=== PATIENT | male | born 1970 | race Caucasian/White ===

== ENCOUNTER 2017-09-08 02:35 | Emergency (ER) | payer OTHER ==
[~2017-09-08] VITALS: Ht 182.9 cm; Wt 95.2 kg
[~2017-09-08 02:35] MED LIST: (None)20 M1 PO; AMLO5 PO; CEFU500 PO; CETI5 PO; CHLO10 PO; CHLO25 PO; CHLO5 PO; CLON.1 PO; CLON.2 PO; CLON.5 PO; CLON1 PO; CLONIDINE; DIPASPER PO; DOXA4 PO; DULO30; ESCI10 PO; FAMO20 PO; GLIP10 PO; HYDACE5 PO; LORA.5; LORA1 PO; LORA2 PO; METF850 PO; MIRT30 PO; NAPR500 PO; NASAL SPRAY OTC; OMEP20ER PO; OXYACE5T PO; POTCHL20ER PO; PROM25 PO; PROM25S PR; Prednisone20 MG PO; RANI150 PO; ROSU10TA PO; RXDIPATR PO; RXHYDACE PO; RXHYDMOR2 PO; RXLORA1 PO; RXONDA4ODT MM; RXOXYACE PO; RXPROACE PO; RXPROM25 PO; RXTRAM50 PO; SIMV20 PO; TAMS.4ER PO; TRAM50 PO; VENL75ER; [UNRECOGNIZED DRUG - OTHER]; bp med
[2017-09-08] MEDS ORDERED: Prednisone20 MG PO (03:56)
== END 2017-09-08 04:11 | disposition home or self-care (01) ==
LOC: ER 02:35
DX: L25.9 Unspecified contact dermatitis, unspecified cause (principal); I10 Essential (primary) hypertension; Z88.8 Allergy status to other drugs, medicaments and biological substances
CPT/HCPCS: 99282

== ENCOUNTER 2018-03-19 16:37 | Emergency (ER) | payer OTHER ==
[~2018-03-19] VITALS: Ht 182.9 cm; Wt 86.2 kg
== END 2018-03-19 18:05 | disposition home or self-care (01) ==
LOC: ER 16:37
DX: R07.81 Pleurodynia (principal); I10 Essential (primary) hypertension; Z88.8 Allergy status to other drugs, medicaments and biological substances; W01.0XXA Fall on same level from slipping, tripping and stumbling without subsequent striking against object, initial encounter
CPT/HCPCS: 71101; 99283-25

== ENCOUNTER 2018-05-15 09:23 | Emergency (ER) | payer OTHER ==
[~2018-05-15] VITALS: Ht 185.4 cm; Wt 86.2 kg
[2018-05-15 11:29] LABS: Source, Urine Clean Catch
[2018-05-15 11:35] LABS: Bilirubin, Urine Neg (Neg); Blood, Urine Neg (Neg); Glucose Qualitative, Urine Neg (Neg); Ketones, Urine Neg (Neg); Leukocyte Esterase, Urine Neg (Neg); Nitrite, Urine Neg (Neg); Protein, Urine Neg (Neg); Specific Gravity, Urine 1.015 (1.003-1.022); Urobilinogen, Urine NORM (Normal)
[2018-05-15 11:51] LABS: Appearance, Urine Clear (Clear); Color, Urine Yellow (P-Yellow)
[2018-05-15] MEDS ORDERED: Ultram50 MG PO (11:52)
== END 2018-05-15 12:15 | disposition home or self-care (01) ==
LOC: ER 09:23
PROVIDERS: Physician Assistant
DX: K40.90 Unilateral inguinal hernia, without obstruction or gangrene, not specified as recurrent (principal); I10 Essential (primary) hypertension; F17.220 Nicotine dependence, chewing tobacco, uncomplicated; Z88.8 Allergy status to other drugs, medicaments and biological substances
CPT/HCPCS: 76857; 81003; 96372; 99284-25; J1885

== ENCOUNTER 2019-09-21 12:50 | Emergency (ER) | payer OTHER ==
[~2019-09-21] VITALS: Ht 185.4 cm; Wt 94.3 kg
[~2019-09-21 12:50] MED LIST changes: +Ultram50 MG PO
[2019-09-21 13:25] LABS: BASOPHILS ABSOLUTE AUTO 0.05 K/mm3 (0.00-0.23); BASOPHILS PERCENT AUTO 1 % (0-2); EOSINOPHILS ABSOLUTE AUTO 0.09 K/mm3 (0.00-0.68); EOSINOPHILS PERCENT AUTO 1 % (0-6); Hematocrit 43.6 % (37.0-53.0); Hemoglobin 14.4 g/dL (13.5-17.5); IMMATURE GRAN ABSOLUTE AUTO 0.03 K/mm3 (0.00-0.10); IMMATURE GRAN PERCENT AUTO 0 % (0-1); LYMPHOCYTES ABSOLUTE AUTO 1.13 K/mm3 (0.84-5.20); LYMPHOCYTES PERCENT AUTO 11 % (21-46); MONOCYTES ABSOLUTE AUTO 0.86 K/mm3 (0.16-1.47); MONOCYTES PERCENT AUTO 8 % (4-13); Mean Corpuscular HGB 28.4 pg (26.0-34.0); Mean Corpuscular Volume 86 fL (80-100); Mean Platelet Volume 8.8 fL (9.1-12.4); NEUTROPHILS ABSOLUTE AUTO 8.14 K/mm3 (1.96-9.15); NEUTROPHILS PERCENT AUTO 79 % (41-73); Platelet Count 341 K/mm3 (150-400); RDW Coefficient Variation 13.3 % (11.7-14.2); RDW Standard Deviation 41.6 fL (35.1-46.3); Red Blood Cell Count 5.07 M/mm3 (4.30-5.90)
[2019-09-21 13:44] LABS: Alanine Aminotransfer (ALT/SGP 28 U/L (12-78); Albumin, Blood 3.4 g/dL (3.4-5.0); Albumin/Globulin Ratio 0.7 (0.8-1.8); Alk Phos 114 U/L (50-136); Anion Gap 6 mmol/L (6-16); Aspartate Aminotrans (AST/SGOT 22 U/L (12-37); Bilirubin, Total 0.6 mg/dL (0.1-1.0); Blood Urea Nitrogen 13 mg/dL (8-24); Bun/Creatinine Ratio 11.1 (12.0-20.0); CO2, Blood 26 mmol/L (21-32); Calcium, Blood 8.5 mg/dL (8.5-10.1); Chloride, Blood 101 mmol/L (98-108); Creatinine, Blood 1.17 mg/dL (0.60-1.20); Globulin, Blood 5.2 g/dL (2.2-4.0); Glomerular Filtration Rate >60 (60-); Glucose, Blood 138 mg/dL (70-99); Potassium, Blood 3.7 mmol/L (3.5-5.5); Sodium, Blood 133 mmol/L (136-145); Total Protein, Blood 8.6 g/dL (6.4-8.2)
[2019-09-21] MEDS ORDERED: Cephalexin500 MG PO (14:52)
[2019-09-21] MEDS ORDERED: MOTRIN IB200 MG PO (14:56)
== END 2019-09-21 15:16 | disposition home or self-care (01) ==
LOC: ER 12:50
PROVIDERS: Physician Assistant
DX: L03.114 Cellulitis of left upper limb (principal); R07.89 Other chest pain; I10 Essential (primary) hypertension; F17.220 Nicotine dependence, chewing tobacco, uncomplicated
CPT/HCPCS: 36415; 71046; 73130; 76882; 80053; 83605; 85025; 87040; 87077; 87147; 87186; 96372; 99284-25; J0690

== ENCOUNTER 2019-09-22 03:31 | Inpatient (IN) | payer OTHER ==
[~2019-09-22] VITALS: Ht 185.4 cm; Wt 92.5 kg
[~2019-09-22 03:31] MED LIST changes: +Cephalexin500 MG PO; +MOTRIN IB200 MG PO
[2019-09-22 04:21] LABS: BASOPHILS ABSOLUTE AUTO 0.06 K/mm3 (0.00-0.23); BASOPHILS PERCENT AUTO 1 % (0-2); EOSINOPHILS ABSOLUTE AUTO 0.11 K/mm3 (0.00-0.68); EOSINOPHILS PERCENT AUTO 1 % (0-6); Hematocrit 37.2 % (37.0-53.0); Hemoglobin 12.6 g/dL (13.5-17.5); IMMATURE GRAN ABSOLUTE AUTO 0.04 K/mm3 (0.00-0.10); IMMATURE GRAN PERCENT AUTO 0 % (0-1); LYMPHOCYTES ABSOLUTE AUTO 1.29 K/mm3 (0.84-5.20); LYMPHOCYTES PERCENT AUTO 11 % (21-46); MONOCYTES ABSOLUTE AUTO 1.13 K/mm3 (0.16-1.47); MONOCYTES PERCENT AUTO 10 % (4-13); Mean Corpuscular HGB 28.6 pg (26.0-34.0); Mean Corpuscular HGB Conc 33.9 g/dL (31.5-36.5); Mean Corpuscular Volume 85 fL (80-100); NEUTROPHILS ABSOLUTE AUTO 8.79 K/mm3 (1.96-9.15); NEUTROPHILS PERCENT AUTO 77 % (41-73); Platelet Count 286 K/mm3 (150-400); RDW Coefficient Variation 13.2 % (11.7-14.2); RDW Standard Deviation 41.3 fL (35.1-46.3); White Blood Cell Count 11.42 K/mm3 (4.00-11.30)
[2019-09-22 04:39] LABS: Alanine Aminotransfer (ALT/SGP 20 U/L (12-78); Albumin, Blood 2.9 g/dL (3.4-5.0); Albumin/Globulin Ratio 0.6 (0.8-1.8); Alk Phos 108 U/L (50-136); Anion Gap 8 mmol/L (6-16); Aspartate Aminotrans (AST/SGOT 19 U/L (12-37); Bilirubin, Total 0.5 mg/dL (0.1-1.0); Blood Urea Nitrogen 10 mg/dL (8-24); Bun/Creatinine Ratio 10.6 (12.0-20.0); CO2, Blood 24 mmol/L (21-32); Calcium, Blood 8.2 mg/dL (8.5-10.1); Chloride, Blood 99 mmol/L (98-108); Creatinine, Blood 0.94 mg/dL (0.60-1.20); Globulin, Blood 4.7 g/dL (2.2-4.0); Glomerular Filtration Rate >60 (60-); Glucose, Blood 164 mg/dL (70-99); Potassium, Blood 3.3 mmol/L (3.5-5.5); Sodium, Blood 131 mmol/L (136-145); Total Protein, Blood 7.6 g/dL (6.4-8.2)
--- NOTE | 2019-09-22 07:25 | NUR ---
PATIENT IS A NEW ADMIT FROM THE ED. ARRIVED VIA W/C AND INDEPENDENT TRANSFER TO THE BED. AXOX 4 AND INDEPENDENT. PATIENT ORIENTED TO ROOM AND CALL LIGHT SYSTEM. ON ROOM AIR. REPORTS HE LIVES AT THE [facility]. LEFT HAND SEVERE SWELLING AND REPORTS PAINFUL. PENDING MEDICATION ORDERS ON ADMIT. LAB IN FOR BLOOD CULTURE DRAW. PHARMACY REPORTS TO HOLD VANCO ORDER FROM ED AND PLACED NEW VANCO ORDER. ADMIT COMPLETE. CALL LIGHT IN REACH. REPORTED TO ONCOMING RN.
--- NOTE | 2019-09-22 19:14 | NUR ---
PT CONTINUES WITH FREQUENT IV ABX, DID RECEIVED IV POTASSIUM TODAY, TOLERATED WELL. CT SCAN COMPLETED WITHOUT DIFFICULTY. PT SLEEPS OFF AND ON, PAIN FROM SWOLLEN LEFT HAND WAKES, FREQUENT PAIN MEDICATIONS NEEDED. NO ACUTE CHANGES NOTED THIS SHIFT, WILL CONTINUE TO MONITOR AND REPORT TO ONCOMING RN
--- NOTE | 2019-09-23 01:28 | NUR ---
LAB REPORTS THE SAME POSITIVE POSITIVE BLOOD CULTURES FOR THE SECOND TIME. GRAM POSITIVE COCCI IN CLUSTERS. PHARMACY NOTIFIED AND APPROVED THE IV VANCO AND IV MAXIPIME PATIENT IS ON.
--- NOTE | 2019-09-23 02:47 | NUR ---
LAB REPORTS THE SAME POSITIVE BLOOD CULTURE FOR THE THIRD TIME SINCE ADMIT AND SECOND TIME IN THE LAST FEW HOURS. GRAM POSITIVE COCCI IN CLUSTERS. PHARMACY NOTIFIED ON LAST SET AND APPROVED ANTIBIOTICS PATIENT IS ON.
--- NOTE | 2019-09-23 03:49 | NUR ---
SHIFT SUMMARY PATIENT HAD NO ACUTE CHANGES OBSERVED. AXO X4 AND INDEPENDENT IN THE ROOM. REPORTED LEFT HAND PAIN AND ANXIETY. IV TORADOL AND PO ATIVAN ONE MG GIVEN. PATIENT ABLE TO SLEEP FOR THE NEXT FOUR HOURS. IV DILAUDID ALSO USED FOR PAIN MANAGEMENT. PIV REMAINS INTACT. IV ABXS INFUSED T/O SHIFT. NEEDLEMAKER REPORTS SINUS AT 100. VSS/AFEBRILE. DENIES SOB AND N/V. PATIENT ABLE TO SLEEP WITH PAIN MANAGEMENT. CALL LIGHT IN REACH. BED IN LOWEST POSITION. WILL CONTINUE TO MONITOR UNTIL DAY SHIFT NURSE ASSUMES CARE.
--- NOTE | 2019-09-23 05:53 | NUR ---
PATIENT REFUSED LAB DRAW AT THIS TIME. REPORTS FOR LAB TO COME BACK.
[2019-09-23 15:06] LABS: Hematocrit 34.9 % (37.0-53.0); Hemoglobin 11.5 g/dL (13.5-17.5); Mean Corpuscular HGB 28.5 pg (26.0-34.0); Mean Corpuscular Volume 87 fL (80-100); Mean Platelet Volume 9.3 fL (9.1-12.4); Platelet Count 323 K/mm3 (150-400); RDW Coefficient Variation 13.4 % (11.7-14.2); RDW Standard Deviation 42.8 fL (35.1-46.3); Red Blood Cell Count 4.03 M/mm3 (4.30-5.90); White Blood Cell Count 9.88 K/mm3 (4.00-11.30)
[2019-09-23 16:08] LABS: Alanine Aminotransfer (ALT/SGP 18 U/L (12-78); Albumin, Blood 2.6 g/dL (3.4-5.0); Albumin/Globulin Ratio 0.6 (0.8-1.8); Alk Phos 112 U/L (50-136); Anion Gap 7 mmol/L (6-16); Aspartate Aminotrans (AST/SGOT 12 U/L (12-37); Bilirubin, Total 0.5 mg/dL (0.1-1.0); Blood Urea Nitrogen 9 mg/dL (8-24); Bun/Creatinine Ratio 11.7 (12.0-20.0); CO2, Blood 23 mmol/L (21-32); Calcium, Blood 8.5 mg/dL (8.5-10.1); Chloride, Blood 109 mmol/L (98-108); Creatinine, Blood 0.77 mg/dL (0.60-1.20); Globulin, Blood 4.7 g/dL (2.2-4.0); Glomerular Filtration Rate >60 (60-); Glucose, Blood 135 mg/dL (70-99); Potassium, Blood 3.5 mmol/L (3.5-5.5); Sodium, Blood 139 mmol/L (136-145); Total Protein, Blood 7.3 g/dL (6.4-8.2)
--- NOTE | 2019-09-23 16:17 | NUR ---
SHIFT SUMMARY PT IS A/O X 4 WITH CONTINUES TO C/O PAIN TO HIS LEFT HAND. PAIN MEDS HAVE BEEN GIVEN ORDERED AND PT REPORTS MILD RELIEF. THE LEFT HAND REMAINS SWOLLEN AND PT HAS BEEN ENCOURAGED TO ELEVATE IT ON A PILLOW. DR ESTES TELE THIS MORNING. IV ABO INFUSED ORDERED WITH NO ISSUES OBSERVED. 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 DR JENSEN WAS CONSULTED FOR THE HAND AND SAW THE PT AT THE BEDSIDE, HE MADE THE PT NPO FOR POSSIBLE PROCEDURE TOMORROW. PT IS ABLE TO MAKE HIS NEEDS KNOWN AND CALLS FREQUENTLY FOR ASSISTANCE. CALL LIGHT IS IN REACH.
--- NOTE | 2019-09-24 04:34 | NUR ---
SHIFT SUMMARY: VSS. AFEB. A/OX4. COMMUNICATES NEEDS. PT DOES NOT WANT CARES ASKING THIS RN NOT TO RETURN TO HIS ROOM EVEN AFTER IV ABT IS COMPLETE. HE STATED HE WILL "JUST RIP IT OUT INSTEAD". HE IS ANGRY AND ANXIOUS ABOUT LOW PAIN TOLERANCE AND PAINFUL L HAND. HE BEGAN TO YELL ABOUT HIS PAIN AND HIT THE BED RAIL WITH HIS LEFT HAND AT ONE POINT. ADMINSITERED NORCO AND ATIVAN ORDERED AND HAVE RESPECTED PT'S REQUEST TO NOT BE DISTURBED SINCE- WITH THE EXCEPTION OF CHECKING IN ON PT DISCREETLY. CONT WITH LARGE SWELLING AND ERYTHEMA OF THE ENTIRE L HAND. PT DID HAVE IT ELEVATED ON PILLOW AND BED RAIL AT TIME OF ASSESSMENT. REMAINS NPO IN ANTICIPATION FOR I&D of L HAND ABSCESS DURING THE DAY. HAS SLEPT THROUGH MUCH OF THE NIGHT WITHOUT COMPLAINT. NO ACUTE CHANGES. WILL CONT TO MONITOR.
[2019-09-24 05:07] LABS: BASOPHILS ABSOLUTE AUTO 0.06 K/mm3 (0.00-0.23); BASOPHILS PERCENT AUTO 1 % (0-2); EOSINOPHILS ABSOLUTE AUTO 0.43 K/mm3 (0.00-0.68); EOSINOPHILS PERCENT AUTO 4 % (0-6); Hematocrit 35.3 % (37.0-53.0); Hemoglobin 11.6 g/dL (13.5-17.5); IMMATURE GRAN ABSOLUTE AUTO 0.03 K/mm3 (0.00-0.10); IMMATURE GRAN PERCENT AUTO 0 % (0-1); LYMPHOCYTES ABSOLUTE AUTO 1.62 K/mm3 (0.84-5.20); LYMPHOCYTES PERCENT AUTO 16 % (21-46); MONOCYTES ABSOLUTE AUTO 0.92 K/mm3 (0.16-1.47); MONOCYTES PERCENT AUTO 9 % (4-13); Mean Corpuscular HGB 28.4 pg (26.0-34.0); Mean Corpuscular HGB Conc 32.9 g/dL (31.5-36.5); Mean Corpuscular Volume 87 fL (80-100); Mean Platelet Volume 9.1 fL (9.1-12.4); NEUTROPHILS ABSOLUTE AUTO 7.32 K/mm3 (1.96-9.15); NEUTROPHILS PERCENT AUTO 71 % (41-73); Platelet Count 359 K/mm3 (150-400); RDW Coefficient Variation 13.4 % (11.7-14.2); RDW Standard Deviation 42.5 fL (35.1-46.3); Red Blood Cell Count 4.08 M/mm3 (4.30-5.90); White Blood Cell Count 10.38 K/mm3 (4.00-11.30)
[2019-09-24 05:43] LABS: Alanine Aminotransfer (ALT/SGP 15 U/L (12-78); Albumin, Blood 2.6 g/dL (3.4-5.0); Albumin/Globulin Ratio 0.5 (0.8-1.8); Alk Phos 96 U/L (50-136); Anion Gap 7 mmol/L (6-16); Aspartate Aminotrans (AST/SGOT 11 U/L (12-37); Bilirubin, Total 0.3 mg/dL (0.1-1.0); Blood Urea Nitrogen 7 mg/dL (8-24); Bun/Creatinine Ratio 7.8 (12.0-20.0); CO2, Blood 24 mmol/L (21-32); Calcium, Blood 8.3 mg/dL (8.5-10.1); Chloride, Blood 109 mmol/L (98-108); Creatinine, Blood 0.89 mg/dL (0.60-1.20); Globulin, Blood 4.8 g/dL (2.2-4.0); Glomerular Filtration Rate >60 (60-); Glucose, Blood 109 mg/dL (70-99); Potassium, Blood 3.7 mmol/L (3.5-5.5); Sodium, Blood 140 mmol/L (136-145); Total Protein, Blood 7.4 g/dL (6.4-8.2)
[2019-09-24 13:51] LABS: Vancomycin, Trough 21.7 ug/mL (5.0-10.0)
--- NOTE | 2019-09-24 15:51 | NUR ---
SHIFT SUMMARY PT IS A/O X 4 WITH ONGOING C/O PAIN TO LEFT HAND. PT REPORTS THAT THE CURRENT PAIN MED REGIMINE IS EFFECTIVE OF NOW. LEFT HAND REMAINS ELEVATED ON A PILLOW TO HELP DECREASE SWELLING. PER DR PETTIT THEY WILL NOT BE DOING ANY SURGICAL PROCEDURES OF NOW AND NPO STATUS WAS DCD AND REGULAR DIET RE-STARTED. PT HAS BEEN SLEEPING MOST OF DAY AND HAS ASKED NOT TO BE DISTURBED EXCEPT FOR MEDS AND TX. HE IS GENERALLY UNPLEASANT AND STATES HE IS UNCOMFORTABLE AND WISHES TO GO HOME [place]. PER REPORT HE LIVES [facility] AND CARE MANAGEMENT HAS BEEN WORKING WITH HIM ON A DC PLAN. PT WAS ASSISTED TO TAKE A SHOWER, CLEAN CLOTHES WERE PROVIDED AND BED LINENS CHANGED. CRITICAL VANCO RESULT WAS CALLED INTO PHARMACY AND THEY ADJUSTED HIS VANCO REFLECTED ON THE OCT. PT IS SELF AMBULATING TO THE TOILET. PT IS ABLE TO MAKE HIS NEEDS KNOWN AND CALLS FOR HELP WHEN NEEDED. CALL LIGHT IS IN REACH.
--- NOTE | 2019-09-25 09:21 | NUR ---
LATE MAILROOM SUPERVISOR SUMMARY Patient slept fitfully overnight. Woke approximately 3 times for pain/anxiety meds. Right forearm IV infiltrated beginning of shift. warm moist compresses placed to dissipate swelling. Patient refused IV restart until closing supervisor as he thought he was to be discharged today. Remindedd patient of possible I&D in AM, and that he would need IV Vanco in AM as that is what the surgeon stated in her notes was helping with the infection. Patient agreed, and night smelter charger was able to restart IV in right upper arm. Left hand is very red and swollen between thumb and first finger. Patient states much improved. Light outline of wound shows that it has shrunken impressively since admission
--- NOTE | 2019-09-25 19:23 | NUR ---
SHIFT SUMMARY PT AXO, IRRITABLE THIS MORNING. PT THREATENED TO LEAVE AMA AT ONE POINT. NURSE ENCOURAGED PT TO BE PATIENT. DR PETTIT CONSULTED, SEE NOTE. PT MEDICATED FOR PAIN PER EMAR. AT ONE POINT, PT REQUESTED PAIN AND ANXIETY MEDICATION THEN WHEN NURSE RETURNED TO ADMINISTER, PT WAS ASLEEP. MEDS RETURNED TO XIS AT THAT TIME. PT UP AD CALI IN ROOM. IV PATENT AND SALINE LOCKED. BED IN LOW POSITION, CALL LIGHT WITHIN REACH. NO OTHER CHANGES THIS SHIFT.
[2019-09-26 05:08] LABS: BASOPHILS ABSOLUTE AUTO 0.09 K/mm3 (0.00-0.23); BASOPHILS PERCENT AUTO 1 % (0-2); EOSINOPHILS ABSOLUTE AUTO 0.62 K/mm3 (0.00-0.68); EOSINOPHILS PERCENT AUTO 7 % (0-6); Hemoglobin 14.2 g/dL (13.5-17.5); IMMATURE GRAN ABSOLUTE AUTO 0.09 K/mm3 (0.00-0.10); IMMATURE GRAN PERCENT AUTO 1 % (0-1); LYMPHOCYTES ABSOLUTE AUTO 1.88 K/mm3 (0.84-5.20); LYMPHOCYTES PERCENT AUTO 20 % (21-46); MONOCYTES ABSOLUTE AUTO 0.72 K/mm3 (0.16-1.47); MONOCYTES PERCENT AUTO 8 % (4-13); Mean Corpuscular HGB 28.1 pg (26.0-34.0); Mean Corpuscular Volume 85 fL (80-100); Mean Platelet Volume 9.1 fL (9.1-12.4); NEUTROPHILS ABSOLUTE AUTO 5.92 K/mm3 (1.96-9.15); NEUTROPHILS PERCENT AUTO 63 % (41-73); Platelet Count 411 K/mm3 (150-400); RDW Coefficient Variation 13.3 % (11.7-14.2); RDW Standard Deviation 41.3 fL (35.1-46.3); Red Blood Cell Count 5.06 M/mm3 (4.30-5.90); White Blood Cell Count 9.32 K/mm3 (4.00-11.30)
[2019-09-26 05:28] LABS: Albumin, Blood 2.8 g/dL (3.4-5.0); Anion Gap 7 mmol/L (6-16); Blood Urea Nitrogen 13 mg/dL (8-24); Bun/Creatinine Ratio 14.2 (12.0-20.0); CO2, Blood 25 mmol/L (21-32); Calcium, Blood 9.1 mg/dL (8.5-10.1); Chloride, Blood 106 mmol/L (98-108); Creatinine, Blood 0.92 mg/dL (0.60-1.20); Glomerular Filtration Rate >60 (60-); Glucose, Blood 112 mg/dL (70-99); Phosphorus, Blood 4.5 mg/dL (2.5-4.9); Potassium, Blood 4.4 mmol/L (3.5-5.5); Sodium, Blood 138 mmol/L (136-145); Vancomycin, Trough 13.2 ug/mL (5.0-10.0)
--- NOTE | 2019-09-26 06:16 | NUR ---
SHIFT SUMMARY NO ISSUES NOTED. PT HAS SLEPT OFF/ ON T/O SHIFT. PT DISCOMFORT TX PER EMAR. PT CURRENTLY SLEEPING AND BREATHING EASY. CALL LIGHT IN REACH.
--- NOTE | 2019-09-26 18:35 | NUR ---
SHIFT SUMMARY PT HAS BEEN SLEEPING OFF AND ON. MEDICATED MULITPLE TIMES FOR LEFT HAND PAIN. PT INDEPENDENT AND SHOWERED TODAY. DR. SMITH IN TO SEE PT THIS AFTERNOON AND PLANS FOR PT TO HAVE 4 WEEKS OF IV DAPTOMYCIN ANTIBIOTICS. NO CHANGES THIS SHIFT. WILL CONTINUE TO MONITOR AND REPORT TO ONCOMING RN.
--- NOTE | 2019-09-27 04:18 | NUR ---
MOLDER INFLATED BALL SUMMARY PT SLEPT OFF AND ON TONIGHT. A/O X4, INDEPENDENT IN ROOM. PT REPORTS SWELLING IN LEFT HAND HAS GONE DOWN. L HAND PAIN TREATED PER EMAR. A FEW VISITORS VISITED PT. NO ACUTE CHANGES, VSS. WILL CONTINUE TO MONITOR.
[2019-09-27] MEDS ORDERED: IBUP400 PO (13:03)
[2019-09-27] MEDS ORDERED: DAPTOMYCIN350 MG IV (13:05)
--- NOTE | 2019-09-27 15:41 | NUR ---
SHIFT SUMMARY. 1500 PT DISCHARGED HOME VIA PERSONAL VEHICLE, HIS MOTHER WAS TO SUPPLY A RIDE. PT REQUESTED TO SELF AMBULATE TO ENTRANCE WITHOUT ESCORT. IV REMOVED. PT RECIEVED IV ANTIBIOTIC PRIOR TO D/C. 3 APPOINTMENTS SCHEDULED FOR [facility]. CELLULITIS DECREASED PER PT REPORT. NO NEW CHANGES OR CONCERNS.
== END 2019-09-27 15:00 | disposition home or self-care (01) | DRG 872 ==
LOC: ER 03:31 → MEDS 05:51
PROVIDERS: Emergency Medicine; Family Medicine; Internal Medicine; Pharmacist; ADMIT Internal Medicine
DX: A41.02 Sepsis due to Methicillin resistant Staphylococcus aureus (principal); L03.114 Cellulitis of left upper limb; F11.20 Opioid dependence, uncomplicated; R65.20 Severe sepsis without septic shock; E87.6 Hypokalemia; D69.6 Thrombocytopenia, unspecified; D64.9 Anemia, unspecified; I10 Essential (primary) hypertension; Z59.0 Homelessness
CPT/HCPCS: 36415; 73201; 76882; 80053; 80069; 80202; 82550; 82565; 83605; 85025; 85027; 85651; 86140; 87040; 90686; 93306; 96374; 96375; 99284-25; J0690; J0692; J0878; J1170; J1650; J1885; J2405; J3370; J3480; J7030; J7050; Q9967

== ENCOUNTER 2019-09-28 10:30 | Day surgery (SDC) | payer OTHER ==
[~2019-09-28 10:30] MED LIST changes: +DAPTOMYCIN350 MG IV; +IBUP400 PO
== END 2019-09-28 11:30 | disposition home or self-care (01) ==
LOC: ATC 10:30
DX: L03.114 Cellulitis of left upper limb (principal); I10 Essential (primary) hypertension; A41.9 Sepsis, unspecified organism; E87.6 Hypokalemia; Z79.899 Other long term (current) drug therapy
CPT/HCPCS: 96365; J0878

== ENCOUNTER 2019-09-29 00:38 | Day surgery (SDC) | payer OTHER | END 2019-09-29 11:12 | disposition home or self-care (01) | LOC: ATC 00:38 | DX: L03.114 Cellulitis of left upper limb (principal); I10 Essential (primary) hypertension; A41.9 Sepsis, unspecified organism; E87.6 Hypokalemia; Z79.899 Other long term (current) drug therapy | CPT/HCPCS: 96365; J0878 ==

== ENCOUNTER 2019-09-30 00:13 | Day surgery (SDC) | payer OTHER | END 2019-09-30 12:00 | disposition home or self-care (01) | LOC: ATC 00:13 | DX: L03.114 Cellulitis of left upper limb (principal); I10 Essential (primary) hypertension; A41.9 Sepsis, unspecified organism; E87.6 Hypokalemia; Z79.899 Other long term (current) drug therapy | CPT/HCPCS: 96365; J0878 ==

== ENCOUNTER 2019-10-01 00:10 | Day surgery (SDC) | payer OTHER ==
--- NOTE | 2019-10-01 16:50 | NUR ---
THIS RN JUST GOT CALLED BY SERGER BREE, STATING THAT SHE WANTED THE PICC LINE PULLED ON THIS PATIENT REGARDING HE HAS HX OF IV DRUG USE. THIS RN INFORMED HER THAT HE IN FACT DOES NOT HAVE A PICC NOR A POWER GLIDE BUT IF HE CONTINUES TO BE A DIFFICULT IV START WE MAY HAVE TO PUT A POWER GLIDE IN THIS PT. THIS PT WAS POKED 6 TIMES YESTERDAY AND 5 TIMES TODAY. INFORMED SERGER THAT IF PT IS GOING TO ABUSE HEROIN/METH PT WILL FIND A WAY. WE DECIDED TO LEAVE THE IV IN THIS PT, SECURED IT WITH TEGADERM SO IF HE TAMPERS WITH IT IT WILL BE PULLED. INFORMED PT OF CONCERNS REGARDING THIS AND PT VERBALLY STATES HE WILL NOT USE AND UNDERSTANDS THAT WE ARE PUTTING TAMPER RESISTANT DRESSINGS ON IV. IF WE SEE ANY FURTHER ISSUES WITH PT WE WILL SEE IF PT COULD HAVE ORAL ANTIBIOTICS. IN FACT PT WOULD RATHER DO ORAL ANTIBIOTICS BECAUSE HE STATES IT IS HARD TO GET RIDE IN HER AND THIS DEPARTMENT DOES NOT KNOW IF HE WILL BE A FAITHFUL/COMPLIENT PT REGARDING INFUSIONS
== END 2019-10-01 14:45 | disposition home or self-care (01) ==
LOC: ATC 00:10
DX: L03.114 Cellulitis of left upper limb (principal); I10 Essential (primary) hypertension
CPT/HCPCS: 96365; J0878

== ENCOUNTER 2019-10-02 00:11 | Day surgery (SDC) | payer OTHER | END 2019-10-02 10:39 | disposition home or self-care (01) | LOC: ATC 00:11 | DX: L03.114 Cellulitis of left upper limb (principal); I10 Essential (primary) hypertension; A41.9 Sepsis, unspecified organism; E87.6 Hypokalemia; Z79.899 Other long term (current) drug therapy | CPT/HCPCS: 96365; J0878 ==

== ENCOUNTER 2019-10-03 00:05 | Day surgery (SDC) | payer OTHER ==
--- NOTE | 2019-10-03 17:12 | NUR ---
AFTER 6 UNSUCCESSFUL IV ATTEMPTS BY 2 RNS, PT DECIDED TO LEAVE, WILL RETURN TOMORROW.
== END 2019-10-03 22:15 | disposition home or self-care (01) ==
LOC: ATC 00:05
DX: L03.114 Cellulitis of left upper limb (principal); I10 Essential (primary) hypertension; Z79.899 Other long term (current) drug therapy
CPT/HCPCS: J0878

== ENCOUNTER 2019-10-04 00:20 | Day surgery (SDC) | payer OTHER ==
--- NOTE | 2019-10-04 15:45 | NUR ---
DR SMITH WAS NOTIFIED THAT PT WAS A DIFFICULT IV START, THAT PT WAS LIVING IN A DRUG HOUSE. DR AGREED THAT LEAVING AN IV WAS NOT IDEAL. AN ORDER WAS OBTAINED FOR ORAL ANTIBIOTICS IF VENOUS ACCESS WAS NOT POSSIBLE. PT VERBALIZED UNDERSTANDING.
== END 2019-10-04 15:25 | disposition home or self-care (01) ==
LOC: ATC 00:20
DX: L03.114 Cellulitis of left upper limb (principal); I10 Essential (primary) hypertension; A41.9 Sepsis, unspecified organism; E87.6 Hypokalemia; Z79.899 Other long term (current) drug therapy
CPT/HCPCS: J0878

== ENCOUNTER 2019-10-05 00:25 | Day surgery (SDC) | payer OTHER ==
--- NOTE | 2019-10-05 18:59 | NUR ---
PT NOT SEEN IN CLINIC TODAY. ADMITTING MULTIMEDIA AUTHOR REPORTS PT CAME IN BUT TOLD HER "HE WASNT STAYING".
== END 2019-10-05 22:30 | disposition home or self-care (01) ==
LOC: ATC 00:25
DX: L03.114 Cellulitis of left upper limb (principal); A41.9 Sepsis, unspecified organism; E87.6 Hypokalemia; I10 Essential (primary) hypertension; Z79.899 Other long term (current) drug therapy
CPT/HCPCS: J0878

== ENCOUNTER 2019-10-06 02:29 | Day surgery (SDC) | payer OTHER ==
--- NOTE | 2019-10-06 16:36 | NUR ---
PT NOT SEEN IN [facility] TODAY
== END 2019-10-06 22:35 | disposition home or self-care (01) ==
LOC: ATC 02:29
DX: L03.114 Cellulitis of left upper limb (principal); A41.9 Sepsis, unspecified organism; E87.6 Hypokalemia; I10 Essential (primary) hypertension; Z79.899 Other long term (current) drug therapy
CPT/HCPCS: J0878

== ENCOUNTER 2019-10-07 00:21 | Day surgery (SDC) | payer OTHER | END 2019-10-07 22:36 | disposition home or self-care (01) | LOC: ATC 00:21 | DX: L03.114 Cellulitis of left upper limb (principal); I10 Essential (primary) hypertension; E87.6 Hypokalemia; A41.9 Sepsis, unspecified organism; Z79.899 Other long term (current) drug therapy | CPT/HCPCS: J0878 ==

== ENCOUNTER 2019-10-08 01:07 | Day surgery (SDC) | payer OTHER | END 2019-10-08 23:38 | disposition home or self-care (01) | LOC: ATC 01:07 | DX: L03.114 Cellulitis of left upper limb (principal); I10 Essential (primary) hypertension; Z79.899 Other long term (current) drug therapy | CPT/HCPCS: J0878 ==

== ENCOUNTER → 2020-04-04 | Outpatient (CLI) | payer OTHER | END | disposition home or self-care (01) | LOC: LAB 13:00 → LAB SHORT 13:00 | DX: L03.115 Cellulitis of right lower limb (principal); L02.415 Cutaneous abscess of right lower limb | CPT/HCPCS: 87070; 87075; 87077; 87147; 87186; 87205 ==

== ENCOUNTER 2023-04-24 19:53 | Inpatient (IN) | payer OTHER ==
[~2023-04-24] VITALS: Ht 182.9 cm; Wt 108.9 kg
[2023-04-24 20:20] LABS: Base Excess Venous 3.5 mmol/L; PCO2 Venous 41.7 mmHg (38-42); pH Blood Venous 7.43 (7.34-7.37)
[2023-04-24 20:29] LABS: BASOPHILS ABSOLUTE AUTO 0.12 K/mm3 (0.00-0.23); BASOPHILS PERCENT AUTO 1 % (0-2); EOSINOPHILS ABSOLUTE AUTO 1.16 K/mm3 (0.00-0.68); EOSINOPHILS PERCENT AUTO 11 % (0-6); Hematocrit 47.5 % (37.0-53.0); Hemoglobin 16.2 g/dL (13.5-17.5); IMMATURE GRAN ABSOLUTE AUTO 0.05 K/mm3 (0.00-0.10); IMMATURE GRAN PERCENT AUTO 1 % (0-1); LYMPHOCYTES ABSOLUTE AUTO 1.87 K/mm3 (0.84-5.20); LYMPHOCYTES PERCENT AUTO 18 % (21-46); MONOCYTES ABSOLUTE AUTO 0.77 K/mm3 (0.16-1.47); MONOCYTES PERCENT AUTO 7 % (4-13); Mean Corpuscular HGB 29.5 pg (26.0-34.0); Mean Corpuscular HGB Conc 34.1 g/dL (31.5-36.5); Mean Corpuscular Volume 87 fL (80-100); Mean Platelet Volume 9.2 fL (9.1-12.4); NEUTROPHILS ABSOLUTE AUTO 6.58 K/mm3 (1.96-9.15); NEUTROPHILS PERCENT AUTO 62 % (41-73); Platelet Count 323 K/mm3 (150-400); RDW Coefficient Variation 13.4 % (11.7-14.2); RDW Standard Deviation 41.6 fL (35.1-46.3); Red Blood Cell Count 5.49 M/mm3 (4.30-5.90); White Blood Cell Count 10.55 K/mm3 (4.00-11.30)
[2023-04-24 20:43] LABS: Albumin, Blood 3.7 g/dL (3.4-5.0); Albumin/Globulin Ratio 0.8 (0.8-1.8); Bilirubin, Total 0.5 mg/dL (0.1-1.0); Bun/Creatinine Ratio 14.1 (12.0-20.0); Calcium, Blood 9.1 mg/dL (8.5-10.1); Globulin, Blood 4.7 g/dL (2.2-4.0); Magnesium, Blood 2.2 mg/dL (1.6-2.4); Potassium, Blood 4.7 mmol/L (3.5-5.5); Total Protein, Blood 8.4 g/dL (6.4-8.2)
[2023-04-24 21:12] LABS: Influenza A, PCR NEGATIVE (NEGATIVE); Influenza B, PCR NEGATIVE (NEGATIVE); Resp Syncytial Virus, PCR NEGATIVE (NEGATIVE); SARS-Cov-2 (COVID-19) PCR, MMC NEGATIVE (NEGATIVE)
[2023-04-24 23:27] VITALS: BP 144/99
[2023-04-25 01:50] LABS: U Amphetamine Screen DETECTED; U Barbituate Screen Not Detected; U Benzodiazapine Screen DETECTED; U Buprenorphine Screen Not Detected; U Cannabinoids Screen Not Detected; U Cocaine Screen Not Detected; U Methadone Screen Not Detected; U Methamphetamine Screen DETECTED; U Opiates Screen Not Detected; U Oxycodone Screen Not Detected; U Phencyclidine Screen Not Detected; U Propoxyphene Screen Not Detected
[2023-04-25 04:00] VITALS: BP 125/86
[2023-04-25 04:43] LABS: PCO2 Arterial 48.2 mmHg (35-45); PO2 Arterial 63.8 mmHg (80-100)
--- NOTE | 2023-04-25 05:15 | NUR ---
SHIFT SUMMARY/ARRIVAL TO PCU NOTE RECEIVED REPORT FROM FIRE EXTINGUISHER MECHANIC CHAD LOPEZ. ALL QUESTIONS ANSWERED WITH PT SHORTLY ARRIVING TO PCU ~2320 YESTERDAY PM. ARRIVED VIA ER GURNEY, ABLE TO STAND PIVOT TO PCU BED WITH MINIMAL ASSISTANCE FROM STAFF. A/Ox4 AND COOPERATIVE WITH CARE PROVIDED BY STAFF. ANSWERS QUESTIONS APPROPRIATELY AND ABLE TO MAKE HIS NEEDS KNOWN. ARRIVED ON BiPAP 16/8 w/65% FiO2 WITH SPO2 >92%. LATER TRANSITIONED TO AIRVO 60L w/65% FiO2 FOR BREAK FROM BiPAP. NOTICEABLE TACHYPNEA WELL DYSPNEA WITH EXERTION NOTED. BREATHING IS SHALLOW WITH LS BEING VERY DIM/COARSE T/O, EXPIRATORY WHEEZING NOTED. DESATS QUICKLY IF NOT ON BiPAP. CARDIAC, ARRIVED IN SR-ST 90-100's. REPORTS CP WITH DEEP INHALATION THAT RADIATES TO LEFT LOWER BACK. MD AWARE WITH TROPONINS BEING NEGATIVE. SBP STABLE RANGING IN THE 140's. GI/, ABLE TO IND VOID IN THE URINAL AT BEDSIDE. CURRENTLY REMAINING BR DUE TO INCREASE IN O2 DEMAND. SKIN CLEAR T/O WITH NO WOUNDS REPORTED/NOTED. NOTICEABLE SCAR TISSUE ON BOTH SHOULDERS WITH PT REPORTING "FROM MY HISTORY OF HEROIN USE". PT ASKED IF HE CURRENTLY STILL USES ILLICIT DRUGS WITH "I STILL SMOKE METH EVERY ONCE IN AWHILE, BUT I PRIMARY HAVE BEEN SMOKING FENTANYL". PT EDUCATED ON NEED FOR ILLICIT DRUG CESSATION WELL EDUCATED ON RISKS TO HIS HEALTH. PT's STEFANIA IV WAS NOT PATENT WHEN HE ARRIVED FROM ER. NEW IV PLACED FOR MEDICATION ADMINISTRATION. ASSESSED PT FOR RISKS OF ANY IGNITION SOURCES WELL BEHAVIORS FOR INCREASED RISKS OF FIRE DANGER. PT EDUCATED ON COMMON SOURCES OF IGNITION WELL NEED TO KEEP A SAFE ENVIRONMENT. PT VOICED UNDERSTANDING. NO NEW ORDERS AT THIS TIME, WILL REPORT TO ONCOMING RN. ALEX DANIEL OF THIS NOTE.
[2023-04-25 06:41] LABS: BASOPHILS ABSOLUTE AUTO 0.06 K/mm3 (0.00-0.23); BASOPHILS PERCENT AUTO 1 % (0-2); EOSINOPHILS ABSOLUTE AUTO 0.03 K/mm3 (0.00-0.68); EOSINOPHILS PERCENT AUTO 0 % (0-6); Hematocrit 48.2 % (37.0-53.0); Hemoglobin 16.4 g/dL (13.5-17.5); IMMATURE GRAN ABSOLUTE AUTO 0.03 K/mm3 (0.00-0.10); IMMATURE GRAN PERCENT AUTO 0 % (0-1); LYMPHOCYTES ABSOLUTE AUTO 1.03 K/mm3 (0.84-5.20); LYMPHOCYTES PERCENT AUTO 10 % (21-46); MONOCYTES ABSOLUTE AUTO 0.07 K/mm3 (0.16-1.47); MONOCYTES PERCENT AUTO 1 % (4-13); Mean Corpuscular HGB 29.3 pg (26.0-34.0); Mean Corpuscular Volume 86 fL (80-100); Mean Platelet Volume 9.4 fL (9.1-12.4); NEUTROPHILS ABSOLUTE AUTO 9.07 K/mm3 (1.96-9.15); NEUTROPHILS PERCENT AUTO 88 % (41-73); Platelet Count 355 K/mm3 (150-400); RDW Coefficient Variation 13.4 % (11.7-14.2); RDW Standard Deviation 41.6 fL (35.1-46.3); Red Blood Cell Count 5.59 M/mm3 (4.30-5.90); White Blood Cell Count 10.29 K/mm3 (4.00-11.30)
[2023-04-25 06:57] LABS: Bun/Creatinine Ratio 14.4 (12.0-20.0); Calcium, Blood 9.3 mg/dL (8.5-10.1); Creatinine, Blood 0.97 mg/dL (0.60-1.20); Magnesium, Blood 2.3 mg/dL (1.6-2.4); Potassium, Blood 4.1 mmol/L (3.5-5.5)
[2023-04-25 07:29] VITALS: BP 138/90
--- NOTE | 2023-04-25 09:05 | NUR ---
NURSING PCU DAYSHIFT: Assumed care of pt at approx 0700. A/O, pleasant, mildly anxious, cooperative w/care. Skin is pale and diaphoretic, tremulous UE's, scattered scabs and bruising t/o. Able to resposition independently w/line management only. Tele in place, ST, no c/o CP/pressure, SBP 138, trace edema to LLE. L/S with I/E wheezes t/o, harsh cough producing scant amt of thick/brown sputum, dyspnea w/minimal exertion, alternation of Airvo and Bipap to maintain O2 sat mid 90's, continuous bedside O2 monitoring. Abd NT, BT+, voiding dark colored urine using urinal. PIV to L wrist, PG to LUE. Pt c/o minimal tolerance of respiratory equipment. Nicotine patch to be placed, anxiety medication as ordered. RT at bedside for a.m. tx and equipment adjustment, dental hygienist currently at bedside for assessment. Continue to monitor respiratory status and watch for increased w/d. Brother at bedside, awaiting rounding from PMD, call light in reach.
[2023-04-25 11:56] VITALS: BP 141/79
[2023-04-25 16:24] VITALS: BP 138/92
--- NOTE | 2023-04-25 18:36 | NUR ---
NURSING PCU DAYSHIFT SUMMARY: No significant changes noted t/o the shift. Pt has tolerated airvo t/o shift, bipap for short period this morning and approx 1 hr this afternoon. Airvo settings currently 50L/50%. Decision made for no visitors d/t providing contraband (chewing tobacco) and other possible substances while HFNC and bipap are in use. Video monitoring initiated. Medications administered as needed for anxiety and w/d symptoms, tolerating well. Has been compliant w/care and treatment plan since video monitoring initiated. CT chest completed, results reviewed, new d/o received. Pt denies any current needs/questions. Call light in reach and pt has continued to use appropriately t/o shift. Cont to monitor until rpt is given to MEGHA RN.
[2023-04-25 21:10] VITALS: BP 137/74
[2023-04-25 23:53] VITALS: BP 149/89
[2023-04-26 03:52] VITALS: BP 146/74
[2023-04-26 04:11] LABS: BASOPHILS ABSOLUTE AUTO 0.05 K/mm3 (0.00-0.23); BASOPHILS PERCENT AUTO 0 % (0-2); EOSINOPHILS ABSOLUTE AUTO 0.01 K/mm3 (0.00-0.68); EOSINOPHILS PERCENT AUTO 0 % (0-6); Hematocrit 45.1 % (37.0-53.0); Hemoglobin 15.2 g/dL (13.5-17.5); IMMATURE GRAN ABSOLUTE AUTO 0.06 K/mm3 (0.00-0.10); IMMATURE GRAN PERCENT AUTO 0 % (0-1); LYMPHOCYTES ABSOLUTE AUTO 1.21 K/mm3 (0.84-5.20); LYMPHOCYTES PERCENT AUTO 6 % (21-46); MONOCYTES ABSOLUTE AUTO 0.52 K/mm3 (0.16-1.47); MONOCYTES PERCENT AUTO 3 % (4-13); Mean Corpuscular HGB 29.7 pg (26.0-34.0); Mean Corpuscular HGB Conc 33.7 g/dL (31.5-36.5); Mean Corpuscular Volume 88 fL (80-100); Mean Platelet Volume 9.3 fL (9.1-12.4); NEUTROPHILS ABSOLUTE AUTO 17.47 K/mm3 (1.96-9.15); NEUTROPHILS PERCENT AUTO 90 % (41-73); Platelet Count 378 K/mm3 (150-400); RDW Coefficient Variation 13.4 % (11.7-14.2); RDW Standard Deviation 43.3 fL (35.1-46.3); Red Blood Cell Count 5.12 M/mm3 (4.30-5.90); White Blood Cell Count 19.32 K/mm3 (4.00-11.30)
[2023-04-26 04:29] LABS: Albumin, Blood 3.2 g/dL (3.4-5.0); Albumin/Globulin Ratio 0.8 (0.8-1.8); Bilirubin, Total 0.3 mg/dL (0.1-1.0); Bun/Creatinine Ratio 19.4 (12.0-20.0); Calcium, Blood 8.9 mg/dL (8.5-10.1); Creatinine, Blood 1.08 mg/dL (0.60-1.20); Globulin, Blood 4.2 g/dL (2.2-4.0); Potassium, Blood 4.2 mmol/L (3.5-5.5); Total Protein, Blood 7.4 g/dL (6.4-8.2)
--- NOTE | 2023-04-26 06:41 | NUR ---
SHIFT SUMMARY A/Ox4 AND COOPERATIVE WITH CARE. ANSWERS QUESTIONS APPROPRIATELY AND ABLE TO MAKE HIS NEEDS KNOWN. NO ACUTE EVENTS OVERNIGHT FOR PT WAS SLEPT T/O MOST OF THE SHIFT. CARDIAC, REMAINS IN SR-ST 90-100's WITH NO REPORTS OF CP OR PRESSURE. SBP HAS BEEN STABLE RANGING 130-140's. RESPIRATORY, MAINTAINS SPO2 >92% ON AIRVO 50L w/50% FiO2. OCCASIONALLY USED BY BiPAP 14/8 50% FiO2 FOR SOME HOURS LAST NIGHT, BUT COULDN'T TOLERATE IT ANYMORE . LS HAVE IMPROVED SINCE LAST NOC SHIFT. GI/, ABLE TO INDEPENDENTLY VOID INTO URINAL AT BESIDE PRODUCING PEDRO-TEA COLORED URINE. NO BM FOR ME THIS SHIFT. PAIN/WITHDRAW MANAGED WELL VIA EMAR. ASSESSED PT FOR RISKS OF ANY IGNITION SOURCES WELL BEHAVIORS FOR INCREASED RISKS OF FIRE DANGER. PT EDUCATED ON COMMON SOURCES OF IGNITION WELL NEED TO KEEP A SAFE ENVIRONMENT. PT VOICED UNDERSTANDING. NO NEW ORDERS AT THIS TIME, WILL REPORT TO ONCOMING RN. ALEX DANIEL OF THIS NOTE.
[2023-04-26 08:21] VITALS: BP 135/77
[2023-04-26 12:10] VITALS: BP 142/71
--- NOTE | 2023-04-26 14:53 | NUR ---
ASSUMED CARE OF PT AT 0700 THIS AM. PT IS VERY AGGITATED, FRUSTRATED WITH CORDS AND LINES. PT GIVEN MEDICATION FOR PAIN AND WITHDRAWL AND CALMED DOWN. DR WICK AT BEDSIDE FOR ROUNDS, DISCUSSED CONCERNS AND PLAN OF CARE. LATER IN THE AM, APROX 1120, PT BECAME VERY RESTLESS, AGITIATED AND THREATENED TO LEAVE AMA. DR WICK CONTACTED FOR ADDITIONAL MEDICATION ORDERS. PT ASSISTED TO USE PHONE TO CALL HIS SISTER, ASKING HER TO COME PICK HIM UP SO HE COULD LEAVE. THIS RN EDUCATED PT ON THE AMOUNT OF 02 HE IS CURRENTLY REQUIRING, MEDICATION AND TREATMENTS HE IS RECEIVING AND THE OVERALL CONDITION OF HIS LUNGS. THIS RN INFORMED PT OF VERY SERIOUS RISKS OF LEAVING, INCLUDING POSSIBLE RESPIRATORY FAILURE AND . PT ON 45L/45% ON AIRVO AT THAT TIME. AT THIS TIME, RT IS IN ROOM AND HAS WEANED PT'S O2 NEEDS DOWN TO RA, 90%. PT SISTER IN ROOM TO VISIT, VIRTUAL SITTER IN ROOM, AN THIS RN UPDATED SISTER ON CURRENT TREATMENTS AND PLAN OF CARE. SISTER IS ENCOURAGING PT TO STAY IN THE HOSPITAL. WILL CONTINUE TO MONITOR.
--- NOTE | 2023-04-26 15:38 | NUR ---
PT LEFT AMA. DR WICK NOTIFIED BEFORE DEPARTURE, PT DID NOT WANT TO WAIT TO SPEAK TO PHYSICIAN. PT HAS THREATENED TO LEAVE AMA FOUR TIMES THIS SHIFT, THIS RN HAS EDUCATED HIM ABOUT THE RISKS EACH TIME. PT HAS BEEN MEDICATED FOR PAIN/WITHDRAWL T/O THE SHIFT. PRIOR TO LEAVING HE WAS ON 3L NC WITH SPO2 87-90%. PT INFORMED OF THE RISKS OF LEAVING AMA, PT VERBALIZED UNDERSTANDING AND SIGNED AMA FORM, SEE CHART. IV AND POWER GLIDE REMOVED, WNL. TELE REMOVED. PT IS AMBULATORY W/O ASSISTANCE. PT WALKED OUT OF ROOM AND LEFT PCU, PT STATES HIS SISTER WILL BE PICKING HIM UP. PT TOOK ALL BELONGINGS WITH HIM.
== END 2023-04-26 15:57 | disposition left against medical advice (07) | DRG 189 ==
LOC: ER 19:53 → PCU 22:39
PROVIDERS: Emergency Medicine; Internal Medicine; ADMIT Hospitalist
PROC: 5A0935A Assistance with Respiratory Ventilation, Less than 24 Consecutive Hours, High Flow/Velocity Cannula (ICD-10-PCS; principal; 2023-04-24)
PROC: 5A09357 Assistance with Respiratory Ventilation, Less than 24 Consecutive Hours, Continuous Positive Airway Pressure (ICD-10-PCS; 2023-04-24)
PROC: 4A033R1 Measurement of Arterial Saturation, Peripheral, Percutaneous Approach (ICD-10-PCS; 2023-04-25)
DX: J96.01 Acute respiratory failure with hypoxia (principal); T17.890A Other foreign object in other parts of respiratory tract causing asphyxiation, initial encounter; Z20.822 Contact with and (suspected) exposure to COVID-19; F17.220 Nicotine dependence, chewing tobacco, uncomplicated; I10 Essential (primary) hypertension; F10.90 Alcohol use, unspecified, uncomplicated; F11.10 Opioid abuse, uncomplicated; J20.9 Acute bronchitis, unspecified; F15.10 Other stimulant abuse, uncomplicated; E66.3 Overweight; Z87.19 Personal history of other diseases of the digestive system; Z98.890 Other specified postprocedural states; Z79.2 Long term (current) use of antibiotics; Z79.899 Other long term (current) drug therapy; Z71.6 Tobacco abuse counseling; Z71.51 Drug abuse counseling and surveillance of drug abuser; Z68.31 Body mass index [BMI] 31.0-31.9, adult
CPT/HCPCS: 0241U; 36600; 71045; 71260; 80048; 80053; 82803; 83735; 83880; 84145; 84484; 85025; 85379; 93005; 93010; 93306; 94640; 94644; 94645; 94660; 94664; 94762; 96374; 96375; 99285-25; A9270; J1650; J2060; J2405; J2930; J3010; J7030; Q0177; Q9967

== ENCOUNTER 2023-08-03 17:11 | Emergency (ER) | payer OTHER ==
[~2023-08-03] VITALS: Ht 188 cm; Wt 99.8 kg
[2023-08-03 18:41] LABS: Influenza A, PCR NEGATIVE (NEGATIVE); Influenza B, PCR NEGATIVE (NEGATIVE); Resp Syncytial Virus, PCR NEGATIVE (NEGATIVE); SARS-Cov-2 (COVID-19) PCR, MMC NEGATIVE (NEGATIVE)
[2023-08-03] MEDS ORDERED: Zithromax250 MG PO (19:27)
[2023-08-03 19:51] VITALS: BP 135/77
== END 2023-08-03 19:56 | disposition home or self-care (01) ==
LOC: ER 17:11
PROVIDERS: Physician Assistant
DX: J18.9 Pneumonia, unspecified organism (principal); Z20.822 Contact with and (suspected) exposure to COVID-19; F17.220 Nicotine dependence, chewing tobacco, uncomplicated; I10 Essential (primary) hypertension
CPT/HCPCS: 0241U; 71046; 99284-25; A9270